=== PATIENT | male | born 1990 | race Caucasian/White ===

== ENCOUNTER 2016-04-30 22:14 | Emergency (ER) ==
[2016-04-30 22:26] VITALS: BP 128/92
[2016-04-30] MEDS ORDERED: MARCAINE 0.5% PF INJ ONE (23:05)
[2016-04-30] MEDS ORDERED: MARCAINE 0.5% PF ONE (23:06)
[2016-04-30] MEDS ORDERED: NORCO-7.5 PO ONE (23:12)
--- NOTE | 2016-04-30 23:15 | PROVIDER DOCUMENTATION ---
[facility]-EENT General - General Chief Complaint: Toothache Stated Complaint: TOOTHACHE Time Seen by Provider: 04/30/16 23:00 Source: patient Allergies/Adverse Reactions: Patient Allergies Allergy/AdvReac Type Severity Reaction Status Date / Time No Known Allergies Allergy Verified 04/30/16 23:34 Home Medications: Home Medication List Medication Instructions Recorded Confirmed Last Taken Type Amoxicillin 875 mg PO TID #30 tablet 08/27/15 04/30/16 04/30/16 Rx Amoxicillin 500 mg PO TID #30 capsule 04/30/16 Unknown Rx Hydrocodone/Acetaminophen [[place] 1 each PO Q4-6H PRN PRN #20 tablet 04/30/16 Unknown Rx 7.5-325 Tablet] - History of Present Illness-EENT General Nature of Presenting Problem: pt states that his right upper rearmost molar has been broken for a long time and in the last 3 days has become very painful without facial swelling or fevers. Review of Systems - Adult - REVIEW OF SYSTEMS - ADULT Constitutional: denies: chills, fever Eyes: denies: discharge Ears, Nose, Mouth & Throat: denies: ear pain, sinus problem, throat pain Cardiovascular: denies: chest pain Respiratory: denies: cough, shortness of breath Gastrointestinal: denies: abdominal pain, nausea, vomiting Genitourinary: denies: dysuria, flank pain Musculoskeletal: denies: back pain, neck pain Integumentary: denies: rash Neurological: denies: headache/migraines Psychiatric: reports: no symptoms reported Endocrine: reports: no symptoms reported Hematologic/Lymphatic: reports: no symptoms reported Allergic/Immunologic: reports: no symptoms reported All Other Systems: Reviewed and Negative Past History - Adult - PAST MEDICAL HISTORY-ADULT Review of Records: reports: Old Records Reviewed, Nursing Assessment Review, Medications Reviewed, Social history reviewed & non-contributory. Major Childhood Illnesses: reports: denies history Cardiovascular: reports: denies history Respiratory: reports: denies history Gastrointestinal: reports: denies history Obstetrical/Gynecological: reports: denies history Genitourinary: reports: denies history Musculoskeletal: reports: denies history Neurological: reports: denies history Endocrine/Immune: reports: denies history Other Conditions: reports: denies history - PRIOR SURGERIES/PROCEDURES Surgical/Procedure History: reports: other (Right leg) - PRIOR HOSPITALIZATIONS Prior Hospitalizations: reports: none - IMMUNIZATION STATUS Childhood Immunizations: See Nurse Assessment Flu Vaccine: See Nurse Assessment - FAMILY HISTORY Family History: reviewed, not pertinent - SOCIAL HISTORY Smoking: less than 1 pack/day Substance Use: alcohol Alcohol Use Frequency: occasionally Living Situation: family Physical Exam- EENT - Physical Exam EENT Initial Vital Signs Reviewed: Yes General Appearance: appears well, alert, no apparent distress Eye Exam: bilateral eye: PERRL, EOMI Throat Exam: pharynx normal, dental tenderness (tender right upper rearmost molar, no facial swelling) Neck: non-tender, full range of motion, supple, normal inspection Respiratory: chest non-tender, lungs clear, normal breath sounds, no pleuratic chest pain, no respiratory distress, no accessory muscle use Cardiovascular: regular rate, rhythm, no murmur Abdominal Exam: normal bowel sounds, non tender, soft, no organomegaly, no pulsatile mass Back Exam: normal inspection, no CVA tenderness, no vertebral tenderness Integumentary: normal color, normal turgor, warm/dry 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, grossly normal, no motor/sensory deficits Psych/Mental Status: normal mood/affect, normal thought content, normal thought process, oriented x 3 Progress - PLAN OF CARE/RESULTS Progress/Plan/Lab Results: Orders Category Date Time Status Bupivacaine Pf 0.5% [Marcaine 0.5% Pf] Med 04/30/16 23:06 Discontinued 10 ml .ROUTE .STK-MED ONE Bupivacaine Pf 0.5% [Marcaine 0.5% Pf] Med 04/30/16 23:05 Discontinued 10 ml INJ NOW ONE Hydrocodone/APAP 7.5 mg/325 mg [[place]-7.5] Med 04/30/16 23:12 Discontinued 1 each PO NOW ONE Vital Signs Temp Pulse Resp BP Pulse Ox 04/30/16 22:26 98.1 F 61 15 128/92 100 No Known Allergies Allergy (Verified 04/30/16 23:34) Amoxicillin 875 mg PO TID #30 tablet 08/27/15 Amoxicillin 500 mg PO TID #30 capsule 04/30/16 Hydrocodone/Acetaminophen [[place] 7.5-325 Tablet] 1 each PO Q4-6H PRN PRN #20 tablet 04/30/16 OTHER SPECIFIED DISORDERS OF NOSE AND NASAL SINUSES (04/30/16) DENTAL CARIES, UNSPECIFIED (04/30/16) OTHER SPECIFIED DISORDERS OF TEETH AND SUPPORTING STRUCTURES (04/30/16) FRACTURE OF TOOTH (TRAUMATIC), INIT FOR CLOS FX (04/30/16) - REASSESSMENT Reassessment #1 Time Reassessed: 17:40 (put 10cc 0.5% marcaine via dental block with good relief of pain) Status: improving Departure - Departure Time of Disposition Order: 23:13 DIAGNOSIS: Pain, dental Disposition: HOME 01 Certified Medical Emergency: Emergent Condition: Good Additional Instructions: see your dentist [facility] ED Follow Up Instructions: You have been treated by a care provider in the Emergency Department. These instructions are being provided to you so you can have an understanding of how to care for yourself upon discharge. Upon discharge from the Emergency Department, you are responsible for making arrangements for follow-up care by a physician of your choice. Take all prescribed medications as directed. Return to the Emergency Department immediately for any new or worsening symptoms. You may call the Physician Referral phone number at [phone] to obtain a list of Physicians who are taking new patients. Prescriptions: Amoxicillin 500 mg PO TID #30 capsule Hydrocodone/Acetaminophen [[place] 7.5-325 Tablet] 1 each PO Q4-6H PRN PRN #20 tablet PRN Reason: Pain Referrals: None,PCP [Primary Care Provider] - Instructions: Dental Pain
--- NOTE | 2016-04-30 23:15 | PROVIDER DOCUMENTATION ---
[facility]-EE General - General Chief Complaint: Toothache Stated Complaint: TOOTHACHE Time Seen by Provider: 04/30/16 23:00 Source: patient Allergies/Adverse Reactions: Patient Allergies Allergy/AdvReac Type Severity Reaction Status Date / Time No Known Allergies Allergy Verified 04/30/16 23:34 Home Medications: Home Medication List Medication Instructions Recorded Confirmed Last Taken Type Amoxicillin 875 mg PO TID #30 tablet 08/27/15 04/30/16 04/30/16 Rx Amoxicillin 500 mg PO TID #30 capsule 04/30/16 Unknown Rx Hydrocodone/Acetaminophen [[place] 1 each PO Q4-6H PRN PRN #20 tablet 04/30/16 Unknown Rx 7.5-325 Tablet] - History of Present Illness-EENT General Nature of Presenting Problem: Pt is a 26 yom who presents to ER with CC of JELANI maxillary pain x2-3 days. Pt reports that he is currently in the process of having his teeth repaired with his dentist, but his tooth pain started this weekend and has been unable to see his dentist. Pt reports that he is going out of town when he leaves here for a job interview and wont be able to see his dentist until Sunday. EENT Location: reports: dental Quality of Pain: reports: aching, cramping, throbbing Severity: reports: moderate Onset/Duration: reports: 3 days ago Timing: reports: still present Associated Symptoms: reports: tooth pain. denies: cough, facial pain/swelling, fever, poor fluid intake, poor solids intake, sore throat - Throat/Dental Throat/Dental Problem Symptoms: reports: toothache Throat/Dental Problem Context: reports: recent dental extractions, dental decay , fractured tooth Recently seen a dentist or have an appointment?: Yes Review of Systems - Adult - REVIEW OF SYSTEMS - ADULT Constitutional: denies: chills, fever, fatique, night sweats Eyes: reports: no symptoms reported Ears, Nose, Mouth & Throat: reports: mouth/dental pain. denies: ear discharge, hearing loss, sinus problem, loose teeth, mouth swelling, hoarseness, throat pain, throat swelling Cardiovascular: denies: chest pain, edema, heart murmur, irregular heart rate, palpitations, poor circulation, syncope Respiratory: denies: cough, dyspnea on exertion, excessive sputum production, hemoptysis, shortness of breath, wheezing Gastrointestinal: reports: no symptoms reported Genitourinary: reports: no symptoms reported Musculoskeletal: reports: no symptoms reported Integumentary: reports: no symptoms reported Neurological: denies: dizziness/vertigo, headache/migraines, loss of balance, numbness, paresthesia, slurred speech, syncope, tremors Psychiatric: reports: no symptoms reported Endocrine: reports: no symptoms reported Hematologic/Lymphatic: reports: no symptoms reported Allergic/Immunologic: reports: no symptoms reported All Other Systems: Reviewed and Negative Past History - Adult - PAST MEDICAL HISTORY-ADULT Review of Records: reports: Nursing Assessment Review, Medications Reviewed - PRIOR SURGERIES/PROCEDURES Surgical/Procedure History: reports: other (Right leg) - IMMUNIZATION STATUS Childhood Immunizations: See Nurse Assessment Flu Vaccine: See Nurse Assessment Physical Exam- EENT - Physical Exam EENT Initial Vital Signs Reviewed: Yes General Appearance: appears well, alert, mild distress, obtunded. negative: anxious, lethargic, slow to respond Throat Exam: dental tenderness. negative: excessive drooling, foreign body, mandibular swelling, maxillary swelling, pharynx swelling, pharynx tenderness, tonsillar exudate, tonsillar swelling, uvula swelling, voice changes Neck: non-tender, full range of motion, supple. negative: limited range of motion, lymphadenopathy Neurologic: grossly normal, no motor/sensory deficits. negative: abnormal cerebellar tests, facial droop, focal weakness, motor weakness, sensory deficit Psych/Mental Status: normal thought content, normal thought process, oriented x 3, depressed affect Progress - PLAN OF CARE/RESULTS Progress/Plan/Lab Results: POC: Dental block/pain rx/antibiotics Vital Signs - 24 hr 04/30/16 22:26 Temperature 98.1 F Pulse Rate 61 Respiratory 15 Rate Blood Pressure 128/92 O2 Sat by Pulse 100 Oximetry Orders Category Date Time Status Bupivacaine Pf 0.5% [Marcaine 0.5% Pf] Med 04/30/16 23:06 Discontinued 10 ml .ROUTE .STK-MED ONE Bupivacaine Pf 0.5% [[place] 0.5% Pf] Med 04/30/16 23:05 Discontinued 10 ml INJ NOW ONE Hydrocodone/APAP 7.5 mg/325 mg [[place]-7.5] Med 04/30/16 23:12 Discontinued 1 each PO NOW ONE Procedures - ADDITIONAL PROCEDURES Additional Procedure: Digital Nerve Block Time-Out Verification Completed?: Yes Anesthetic: 1%, Bupivicaine/Marcaine Volume of Anesthetic (ml's): 10 Procedure Comment: Started to get pain relief Departure - Departure Time of Disposition Order: 23:35 DIAGNOSIS: Pain, dental Disposition: HOME 01 Certified Medical Emergency: Emergent Condition: Good Additional Instructions: see your dentist [facility] ED Follow Up Instructions: You have been treated by a care provider in the Emergency Department. These instructions are being provided to you so you can have an understanding of how to care for yourself upon discharge. Upon discharge from the Emergency Department, you are responsible for making arrangements for follow-up care by a physician of your choice. Take all prescribed medications as directed. Return to the Emergency Department immediately for any new or worsening symptoms. You may call the Physician Referral phone number at [phone] to obtain a list of Physicians who are taking new patients. Prescriptions: Amoxicillin 500 mg PO TID #30 capsule Hydrocodone/Acetaminophen [[place] 7.5-325 Tablet] 1 each PO Q4-6H PRN PRN #20 tablet PRN Reason: Pain Referrals: None,PCP [Primary Care Provider] - Instructions: Dental Pain Attestation - Scribe Verification/Attestation Scribe:: Jamarcus Marsh Acting as Scribe for:: Ander Rodriguez Scribe documention review:: This chart was documented by a scribe and accurately reflects the service the provider performed and the decisions made by the provider.
== END 2016-04-30 23:35 | disposition home or self-care (01) ==
LOC: ED 22:14
DX: K08.89 Other specified disorders of teeth and supporting structures (principal); J34.89 Other specified disorders of nose and nasal sinuses; K02.9 Dental caries, unspecified; S02.5XXA Fracture of tooth (traumatic), initial encounter for closed fracture
CPT/HCPCS: S0020